=== PATIENT | female | born 1945 | race Caucasian/White ===

== ENCOUNTER 2019-05-12 08:51 | Outpatient (RCR) | payer MEDICARE, OTHER ==
[~2019-05-12 08:51] MED LIST: AMLODIPINE BESYL5 MG PO; BENZONATATE200 MG PO; LEVOCETIRIZINE D5 MG PO; LOSARTAN POTAS100 MG PO; LOVASTATIN20 MG PO
== END 2019-05-15 ==
LOC: PT 08:51
PROVIDERS: ATTEND Specialist
DX: M75.42 Impingement syndrome of left shoulder (principal); M25.512 Pain in left shoulder; M62.81 Muscle weakness (generalized)

== ENCOUNTER → 2019-06-15 | Outpatient (RCR) | payer MEDICARE, OTHER | LOC: PT 05-16 07:51 | PROVIDERS: ATTEND Specialist | DX: M75.42 Impingement syndrome of left shoulder (principal); M25.512 Pain in left shoulder; M62.81 Muscle weakness (generalized) ==

== ENCOUNTER 2019-06-27 08:00 | Outpatient (RCR) | payer MEDICARE, OTHER | END 2019-07-16 | LOC: PT 08:00 | PROVIDERS: ATTEND Specialist | DX: M75.42 Impingement syndrome of left shoulder (principal); M62.81 Muscle weakness (generalized); M25.512 Pain in left shoulder ==